=== PATIENT | male | born 1965 | race African-American/Black ===

== ENCOUNTER 2019-08-07 20:33 | Emergency (ER) | payer OTHER ==
[2019-08-07] MEDS ORDERED: ASPIRIN 325 MG TAB PO ONE (22:38)
--- NOTE | 2019-08-07 23:02 | XRay Report ---
CHEST 1 VIEW INDICATION: chest pain. COMPARISON: None FINDINGS: Support devices: None. Heart: Within normal limits. Lungs/Pleura: No acute air space or interstitial disease. Additional findings: None. IMPRESSION: 1. No acute findings. Signer Name: Kartik Lock MD Signed: 08/07/2019 10:58 PM Workstation Name: [id number]
[2019-08-08 00:11] LABS: Basophils % (Auto) 0.7 % (0.0-1.8); Eosinophils % (Auto) 0.6 % (0.0-4.3); Hematocrit 42.2 % (35.5-45.6); Hemoglobin 14.5 gm/dl (11.8-15.2); Lymphocytes # (Auto) 1.7 K/mm3 (1.2-5.4); Lymphocytes % (Auto) 26.4 % (13.4-35.0); Mean Corpuscular HGB Conc 34 % (32-34); Mean Corpuscular Volume 86 fl (84-94); Monocytes # (Auto) 0.5 K/mm3 (0.0-0.8); Platelet Count 240 K/mm3 (140-440); Red Blood Count 4.93 M/mm3 (3.65-5.03); Red Cell Distribution Width 12.5 % (13.2-15.2)
[2019-08-08 00:28] LABS: Bilirubin,Urine NEG (Negative); Blood,Urine NEG (Negative); Color,Urine Colorless (Yellow); Mucus,Urine FEW /HPF; Protein,Urine <15 mg/dL mg/dL (Negative); RBC,Urine < 1.0 /HPF (0.0-6.0); Urobilinogen,Urine < 2.0 mg/dL (<2.0); WBC,Urine < 1.0 /HPF (0.0-6.0)
[2019-08-08 00:30] LABS: Alanine Aminotransferase 15 units/L (7-56); Albumin 4.7 g/dL (3.9-5); BUN/Creatinine Ratio 15; Blood Urea Nitrogen 12 mg/dL (9-20); Calcium 9.9 mg/dL (8.4-10.2); Hemolysis Index 6
--- NOTE | 2019-08-08 03:32 | Emergency Department Report ---
ED General Adult HPI - General Chief complaint: High BP Stated complaint: ELEVATED BLOOD PRESSURE Source: patient Mode of arrival: Ambulatory Limitations: No Limitations - History of Present Illness Initial comments: Patient is a 54-year-old Citizen Of The [place] male with a history of hypertension and who takes losartan 25 mg daily presents to the ED with complaint of persistently elevated blood pressure despite taking his medications regularly. Patient states that in the last 3 days the blood pressure has been fluctuating with the highest being 177/92 and 158/90 prior to arrival in the ED. Patient states that he contacted his primary care physician's office who advised him to take another dose of losartan tablet and come to the ED for evaluation. Patient also complains of mild lightheadedness and occasional generalized weakness. Patient denies chest pain, shortness of breath, headache, dizziness, syncope, vertigo, palpitations, abdominal pain, nausea and vomiting, diaphoresis, seizures, fever, chills, cough, numbness and tingling or weakness of upper and lower extremities bilaterally, neck pain or back pain. MD Complaint: Elevated Blood pressure; lightheadedness -: Sudden, week(s) (1) Location: head, chest Radiation: non-radiation Severity scale (0 -10): 0 Quality: dull Consistency: intermittent Improves with: none Worsens with: none Associated Symptoms: denies other symptoms, malaise, other (lightheadedness). denies: confusion, chest pain, cough, diaphoresis, fever/chills, headaches, loss of appetite, nausea/vomiting, rash, seizure, shortness of breath, syncope, weakness Treatments Prior to Arrival: none - Related Data Allergies Allergy/AdvReac Type Severity Reaction Status Date / Time No Known Allergies Allergy Unverified 07/31/19 23:36 ED Review of Systems ROS: Stated complaint: ELEVATED BLOOD PRESSURE Other details as noted in HPI Constitutional: malaise, other (elevated blood pressure). denies: chills, fever Eyes: denies: eye pain, eye discharge, vision change ENT: denies: ear pain, throat pain Respiratory: denies: cough, shortness of breath, wheezing Cardiovascular: denies: chest pain, palpitations Endocrine: no symptoms reported Gastrointestinal: denies: abdominal pain, nausea, diarrhea Genitourinary: denies: urgency, dysuria Musculoskeletal: denies: back pain, joint swelling, arthralgia Skin: denies: rash, lesions Neurological: other (Lightheadedness). denies: headache, weakness, paresthesias Psychiatric: denies: anxiety, depression Hematological/Lymphatic: denies: easy bleeding, easy bruising ED Past Medical Hx - Past Medical History Previous Medical History?: Yes Hx Hypertension: Yes - Surgical History Past Surgical History?: No - Social History Smoking Status: Never Smoker Substance Use Type: Alcohol ED Physical Exam - General Limitations: No Limitations General appearance: alert, in no apparent distress - Head Head exam: Present: atraumatic, normocephalic, normal inspection - Eye Eye exam: Present: normal appearance, PERRL, EOMI Pupils: Present: normal accommodation - ENT ENT exam: Present: normal exam, normal orophraynx, mucous membranes moist, TM's normal bilaterally, normal external ear exam - Neck Neck exam: Present: normal inspection, full ROM - Respiratory Respiratory exam: Present: normal lung sounds bilaterally. Absent: respiratory distress, wheezes, rales, rhonchi, chest wall tenderness, decreased breath sounds, prolonged expiratory - Cardiovascular Cardiovascular Exam: Present: regular rate, normal rhythm, normal heart sounds. Absent: systolic murmur, diastolic murmur, rubs, gallop - GI/Abdominal GI/Abdominal exam: Present: soft, normal bowel sounds. Absent: tenderness, guarding, hyperactive bowel sounds, hypoactive bowel sounds, organomegaly - Extremities Exam Extremities exam: Present: normal inspection, full ROM, normal capillary refill - Back Exam Back exam: Present: normal inspection, full ROM. Absent: tenderness, CVA tender ness (R), CVA tenderness (L), muscle spasm, paraspinal tenderness - Neurological Exam Neurological exam: Present: alert, oriented X3, CN II-XII intact, normal gait, reflexes normal - Psychiatric Psychiatric exam: Present: normal affect, normal mood - Skin Skin exam: Present: warm, dry, intact, normal color. Absent: rash ED Course Vital Signs 08/07/19 08/08/19 20:39 02:55 Temperature 98.3 F 98.0 F Pulse Rate 84 72 Respiratory 18 18 Rate Blood Pressure 155/88 Blood Pressure 146/95 [Left] O2 Sat by Pulse 100 99 Oximetry ED Medical Decision Making - Lab Data Result diagrams: 08/07/19 22:43 08/07/19 22:43 - Radiology Data Radiology results: report reviewed, image reviewed Findings [facility] [address] [place] [address] XRay Report Signed Patient: MILTON DUMONT MR#: [id number] : 1965 Acct:[id number] Age/Sex: 54 / M ADM Date: 08/07/19 Loc: ED Attending Dr: Ordering Physician: JUSTEN NAVARRO Date of Service: 08/07/19 Procedure(s): XR chest 1V ap Accession Number(s): [id number] cc: JUSTEN NAVARRO Fluoro Time In Minutes: CHEST 1 VIEW INDICATION: chest pain. COMPARISON: None FINDINGS: Support devices: None. Heart: Within normal limits. Lungs/Pleura: No acute air space or interstitial disease. Additional findings: None. IMPRESSION: 1. No acute findings. Signer Name: Kartik Lock MD Signed: 08/07/2019 10:58 PM Workstation Name: [id number] Transcribed By: KARAN Dictated By: Kartik Lock MD Electronically Authenticated By: Kartik Lock MD Signed Date/Time: 08/07/192257 DD/ 56 TD/TT: - Medical Decision Making This is a 54-year-old Citizen Of [place] male with a history of hypertension and who takes losartan 25 mg daily presents to the ED with complaint of persistently elevated blood pressure despite taking his medications regularly. Patient states that in the last 3 days the blood pressure has been fluctuating with the highest being 177/92 and 158/90 prior to arrival in the ED. Patient states that he contacted his primary care physician's office who advised him to take another dose of losartan tablet and come to the ED for evaluation. Patient also complains of mild lightheadedness and occasional generalized weakness. In the ED, patient is alert and oriented x3 and is not in distress but appears anxious. EKG shows normal sinus rhythm with a ventricular rate of [address] or T wave abnormalities. Chest x-ray shows no acute cardiopulmonary abnormalities or pneumonitis. Lab test results were reviewed and are all nonactionable including the initial and 3-hour repeat troponin. On reevaluation, patient vital signs are stable. Patient was discharged home and advised to follow-up with his primary care physician in 2 days for reevaluation. Patient was advised to return to the ED immediately if symptoms get worse. - Differential Diagnosis CAD; Pneumonia; Dehydration; Critical care attestation.: If time is entered above; I have spent that time in minutes in the direct care of this critically ill patient, excluding procedure time. ED Disposition Clinical Impression: Uncontrolled hypertension, stage 1 Disposition: DC-01 TO HOME OR SELFCARE Is pt being admited?: No Does the pt Need Aspirin: No Condition: Stable Instructions: Hypertension (ED) Additional Instructions: All lab test results and imaging report are all nonactionable and unremarkable. Therefore follow-up with your primary care physician in 3 to 5 days for re evaluation. Return to the ED immediately if symptoms get worse. Referrals: PRIMARY CARE, [Primary Care Provider] - 3-5 Days Time of Disposition: 03:30 Print Language: MALAY
== END 2019-08-08 03:52 | disposition home or self-care (01) ==
LOC: ED 20:33
DX: I10 Essential (primary) hypertension (principal)
CPT/HCPCS: 36415; 71045; 80053; 81001; 84484; 85025; 93005

== ENCOUNTER 2020-02-13 00:24 | Emergency (ER) | payer OTHER ==
[2020-02-13 02:44] VITALS: BP 123/80
== END 2020-02-13 02:46 | disposition left against medical advice (07) ==
LOC: ED 00:24
DX: I10 Essential (primary) hypertension (principal); Z53.21 Procedure and treatment not carried out due to patient leaving prior to being seen by health care provider